=== PATIENT | male | born 1980 | race African-American/Black ===

== ENCOUNTER 2017-02-26 19:50 | Inpatient (IN) ==
[~2017-02-26 19:50] MED LIST: LIDOCAINE 1% 5 ML VIAL ONE; ONDANSETRON 4 MG/2 ML VIAL ONE; PROPOFOL 200 MG/20 ML VIAL IV ONE
[2017-02-26] MEDS ORDERED: SODIUM CHLORIDE 0.9% 500 ML IV STA (20:06)
[2017-02-26] MEDS ORDERED: PIPERACILLIN/TAZOBACTAM 3,375 MG in SODIUM CHLORIDE 0.9% 100 ML IV STA (20:06)
[2017-02-26] MEDS ORDERED: PIPERACILLIN/TAZOBACTAM 3,375 MG VIAL IV ONE (20:11)
[2017-02-26] MEDS ORDERED: SODIUM CHLORIDE 0.9% 100 ML IV ONE (20:11)
--- NOTE | 2017-02-26 20:31 | General Surg History&Physical ---
Assessment and Plan - Time spent with patient Time spent with patient: Greater than 30 minutes (1) Abscess of left thigh Status: Acute Assessment and plan: Impression: Abscess left thigh Plan: Excisional debridement and drainage with IV antibiotics Current Visit: Yes (2) Obesity due to excess calories Status: Acute Assessment and plan: Impression: Obesity moderate Current Visit: Yes History of Present Illness Chief complaint: Painful draining mass left inner thigh History of present illness: Mr. Cristobal is a 36 year old male -[place] who noted Sunday or Sunday the onset of some pain a little not in the inner thigh area on the left. This got progressively worse now is draining at this time when he came into the emergency room tonight. Has a foul odor draining there is a small unusual cystic area in the inner thigh region. There is tenderness difficult to get a good idea exactly how extensive this might be at this time. Dressings will be applied and will put him on some antibiotics and plan to taken surgery tomorrow for debridement. Home Medications Medication Instructions Recorded Confirmed Type No Known Home Medications [No 02/26/17 02/26/17 History Known Home Medications] Allergies Allergy/AdvReac Type Severity Reaction Status Date / Time No Known Allergies Allergy Verified 02/26/17 19:53 Medical,Surgical,& Family Hx - Medical History Medical History: noncontributory - Social History Smoking Status: Current every day smoker Frequency of Alcohol Use: Occasionally Type of Drug Use: None Exam - Constitutional Vitals: Period Temp Pulse Resp BP Sys/Fuller Pulse Ox Last 24 Hr 101.6 F 99 20 158/83 97 General appearance: mild distress - Head Head exam: Present: normal inspection - ENT ENT exam: Present: normal exam - Neck Neck exam: Present: normal inspection - Respiratory Respiratory exam: Present: clear to auscultation bilaterally, rales - Cardiovascular Cardiovascular exam: Present: RRR - GI/Abdominal GI/Abdominal exam: Present: soft. Absent: tenderness - Extremities Exam Extremities exam: Present: other (Left inner thigh on upper medial aspect has a draining area with cystic changes present.) - Back Exam Back exam: Present: normal inspection - Neurological Exam Neurological exam: Present: alert, oriented X3, CN II-XII intact - Skin Skin exam: Present: normal color, warm, dry 12 point system: reviewed and no additional remarkable complaints except as stated
[2017-02-26] MEDS ORDERED: ONDANSETRON 4 MG/2 ML VIAL IV PRN (20:33)
[2017-02-26] MEDS ORDERED: HYDROmorphone 2 MG/1 ML VIAL IV PRN (20:33)
[2017-02-26] MEDS ORDERED: ALUMINUM/MAGNES/SIMETH MAX STR 30 ML UDCUP PO PRN (20:33)
[2017-02-26] MEDS ORDERED: ACETAMINOPHEN 325 MG TABLET PO PRN (20:33)
--- NOTE | 2017-02-26 20:46 | XRay Report ---
XR chest 1V portable Indication: Shortness of breath and fever. Comparison: Chest x-ray 05/08/2016 Technique: Portable AP chest was performed. Findings: Heart size is normal. Pulmonary vasculature appears within normal limits. No significant abnormality of the mediastinal contours demonstrated. Lungs are clear. Bones and soft tissues demonstrate no significant abnormalities. Impression: 1. No evidence of acute pathology. 02/26/2017 8:42 PM PROCEDURE INTERPRETED AT [facility] DEPARTMENT OF RADIOLOGY Final Report Signed by: Dr. Abdulaziz Davalos
[2017-02-26 20:59] LABS: Albumin 3.7 G/DL (3.4-5.0); Basophils % 0.1 % (0.0-0.8); Bilirubin,Total 0.5 MG/DL (0.2-1.0); Calcium 8.8 MG/DL (8.5-10.1); Eosinophils % 0.1 % (0.00-10.9); Hematocrit 37.2 VOL% (42.0-52.0); Hemoglobin 12.3 GM/DL (14.0-18.0); Immature Granulocytes % 0.4 %; Immature Granulocytes Absolute 0.05 #; Lactic Acid 2.1 MMOL/L (0.4-2.0); Lymphocytes # 1.4 10*3/uL (1.4-4.0); Lymphocytes % 10.2 % (21.2-54.2); Mean Corpuscular HGB Conc 33.1 GM/DL (32-36); Mean Corpuscular Hemoglobin 30 PG (27-34); Mean Corpuscular Volume 89.4 FL (87-102); Mean Platelet Volume 12.9 FL (9.6-12.0); Monocytes # 1.1 10*3/uL (0.11-0.8); Monocytes % 7.8 % (1.7-12.7); Neutrophils # 11.3 10*3/uL (1.4-7.4); Neutrophils % 81.4 % (38.7-73.9); Osmolality,Calculated 279.4 MOS/KG (273-304); Platelet Count 157 T/CUMM (130-400); Potassium 3.6 MMOL/L (3.5-5.1); Red Blood Count 4.16 MC/CUMM (3.8-5.5); Red Cell Distribution Width 12.4 % (9.3-17.3); Total Protein 6.7 G/DL (6.4-8.3); White Blood Count 13.9 T/CUMM (4-12)
--- NOTE | 2017-02-26 21:11 | Emergency Department Note ---
Jose Carlos Marvin Gwan, am scribing for, and in the presence of, Jorden Galindo MD 20 :15. Mateo Marvin Charles R, MD, personally performed the services described in this documentation, ascribed by Christopher Branch in my presence, and it is both accurate and complete . Arrival - Arrival Chief Complaint: Abscess Stated Complaint: Fever, Risen inner left thigh ED Nursing Triage Note: C/O Abscess to left inner thigh/fever. Onset Sunday. Pt reports some drainage, but not much. Mode of Arrival: Ambulatory Limitations: No Limitations Source: Patient, Old Records Reviewed, RN Notes Reviewed Time Seen by Provider: 02/26/17 20:01 - History of Present Illness HPI Narrative: Patient is a 36 y/o male who presents to the ED with a c/o abscess to his left inner thigh and fever with an onset 3 days ago. At time of triage, patient's temperature was 101.6. Patient reported that the abscess first appeared as a small bump but as time progressed, his abscess has grown in size and now makes it difficult for him to function normally. Her continued to note that the abscess has began to drain and has a foul smell. This prompted his visit to the ED for further evaluation. Patient confirmed that he has had an abscess before but denies that it has been this big or painful. Patient demonstrated obvious discomfort but did not show any signs of distress. No other problems/complaints reported in ED. Onset (ago): day(s) Consistency: constant Severity: moderate Allergies/Adverse Reactions: Allergies Allergy/AdvReac Type Severity Reaction Status Date / Time No Known Allergies Allergy Verified 02/26/17 19:53 Home Medications: Home Medications Medication Instructions Recorded Confirmed Type No Known Home Medications [No 02/26/17 02/26/17 History Known Home Medications] Review of System - Review of System 12 point system: reviewed and no additional remarkable complaints except as stated - Review of System Constitutional: Present: as per HPI. Absent: chills, diaphoresis Eyes: Absent: discharge, pain Gastrointestinal: Absent: abdominal pain, nausea, vomiting Musculoskeletal: Present: as per HPI, leg pain (lower left thigh pain). Absent : arm pain, back pain Skin: Present: as per HPI, lesions (abscess left groin area). Absent: rash Medical,Surgical,& Family Hx - Social History Smoking Status: Current every day smoker Frequency of Alcohol Use: Occasionally Type of Drug Use: None Exam Vital Signs: Vital Signs Temperature 101.6 F H 02/26/17 19:53 Pulse Rate 96 H 02/26/17 19:58 Respiratory Rate 18 02/26/17 19:58 Blood Pressure 147/91 02/26/17 19:58 O2 Sat by Pulse Oximetry 97 02/26/17 19:53 - General General appearance: alert, in no apparent distress - Head Head exam: Present: atraumatic, normocephalic - Eye Eye exam: Present: normal appearance, PERRL, EOMI - ENT ENT exam: Present: normal oropharynx, mucous membranes moist, TM's normal bilaterally, normal external ear exam - Neck Neck exam: Present: full ROM, trachea midline. Absent: tenderness - Chest Chest inspection: Present: symmetric chest wall rise. Absent: tenderness - Respiratory Respiratory exam: Present: normal lung sounds bilaterally. Absent: respiratory distress - Cardiovascular Cardiovascular exam: Present: regular rate, tachycardia - Abdominal Exam Abdominal exam: Present: soft, normal bowel sounds. Absent: distention - exam: Present: other (10cm x 8cm abscess to left groin inner thigh) - Extremities Exam Extremities exam: Present: full ROM, tenderness (left groin area has a 10cm x 8cm abscess) - Back Exam Back exam: Present: full ROM. Absent: tenderness - Neurological Exam Neurological exam: Present: alert, oriented X3, CN II-XII intact. Absent: motor sensory deficit - Psychiatric Psychiatric exam: Present: normal affect, normal mood - Skin Skin exam: Present: warm, dry, intact, normal color Course - Consultations Consultation #1: Dr. Bustamante will admit patient Time: 21:11 Results - Labs CBC & BMP: 02/26/17 20:19 02/26/17 20:19 Disposition Clinical Impression: Cellulitis, Abscess of skin or subcutaneous tissue, Abscess of left thigh Case discussed with: patient, patient's family Disposition: Still a Patient Condition: Stable Time of Disposition: 21:11
[2017-02-26] MEDS: KETOROLAC 15 MG/1 ML VIAL IV SCH (21:58)
[2017-02-26] MEDS: DOCUSATE SODIUM 100 MG CAPSULE PO SCH (21:58)
[2017-02-26] MEDS: DEXTROSE 5% NACL 0.45% 1,000 ML IV SCH (22:00)
[2017-02-27] MEDS: metroNIDAZOLE INJ 500 MG in PREMIX 1 EACH IV SCH ×2 (01:22→11:38)
[2017-02-27] MEDS: KETOROLAC 15 MG/1 ML VIAL IV SCH ×4 (04:31→21:40)
[2017-02-27] MEDS: DEXTROSE 5% NACL 0.45% 1,000 ML IV SCH ×3 (05:26→21:39)
[2017-02-27] MEDS: PIPERACILLIN/TAZOBACTAM 3,375 MG in SODIUM CHLORIDE 0.9% 100 ML IV SCH ×3 (05:41→21:43)
[2017-02-27 08:20] LABS: Basophils % 0.2 % (0.0-0.8); Eosinophils # 0.1 10*3/uL (0.0-0.87); Eosinophils % 0.6 % (0.00-10.9); Hematocrit 36.5 VOL% (42.0-52.0); Hemoglobin 11.7 GM/DL (14.0-18.0); Immature Granulocytes % 0.4 %; Immature Granulocytes Absolute 0.04 #; Lymphocytes # 1.4 10*3/uL (1.4-4.0); Lymphocytes % 14.1 % (21.2-54.2); Mean Corpuscular HGB Conc 32.1 GM/DL (32-36); Mean Corpuscular Hemoglobin 29 PG (27-34); Mean Corpuscular Volume 89.9 FL (87-102); Mean Platelet Volume 12.9 FL (9.6-12.0); Monocytes # 1.1 10*3/uL (0.11-0.8); Monocytes % 10.6 % (1.7-12.7); Neutrophils # 7.5 10*3/uL (1.4-7.4); Neutrophils % 74.1 % (38.7-73.9); Platelet Count 152 T/CUMM (130-400); Red Blood Count 4.06 MC/CUMM (3.8-5.5); Red Cell Distribution Width 12.3 % (9.3-17.3); White Blood Count 10.2 T/CUMM (4-12)
[2017-02-27] MEDS: PANTOPRAZOLE 40 MG TABLET PO SCH (08:39)
[2017-02-27] MEDS: DOCUSATE SODIUM 100 MG CAPSULE PO SCH ×2 (08:39→21:39)
--- NOTE | 2017-02-27 08:54 | XRay Report ---
XR chest 2V Date: 02/27/2017 4:00 AM History: Respiratory preoperative evaluation Comparison: 02/26/2017 Technique: PA and lateral chest Findings: The heart is normal in size. The lungs are clear with unremarkable mediastinum. No acute osseous findings. Impression: No acute cardiopulmonary pathology identified. PROCEDURE INTERPRETED AT [facility] DEPARTMENT OF RADIOLOGY Final Report Signed by: Dr. Cheryl Tyson
[2017-02-27 08:56] LABS: Calcium 8.6 MG/DL (8.5-10.1); Osmolality,Calculated 279.3 MOS/KG (273-304); Potassium 3.9 MMOL/L (3.5-5.1)
--- NOTE | 2017-02-27 14:28 | Operative Note ---
Date of procedure: 02/27/17 Pre-op diagnosis: Necrotic abscess left upper inner thigh Post-op diagnosis: same Procedure: Operative note: Preoperative diagnosis: Draining abscess with necrotic tissue left upper inner thigh Postoperative diagnosis: Necrotic abscess upper inner thigh. Procedure: Excisional debridement and drainage of abscess of the left upper inner thigh Surgeon Dr. Bustamante Anesthesia was general with local Brief history: 36-year-old obese -[place] male who is not a diabetic but has presented with an abscess in the upper inner thigh area that he does not know how it occurred. She describes it only been present over the last 2436 hrs. before it started to have evidence of drainage. Has a foul odor with a good bit of drainage in the ER we put him in her IV antibiotics like to bring the surgery this time for debridement. This area is difficult to see as is tender to him and he would resistance looking in this area prior to surgery at this time. Procedure: With patient in dorsal lithotomy position prepped and draped in sterile fashion timeout and antibiotics completed approaches area the wound. It is upper inner thigh almost to the crease is a necrotic skin area of fluctuance in this region. This necrotic area measures 4.5 x 6 cm in size. After instilling local anesthetic made incision on the top of this necrotic area which we obtained a large amount of purulent material that we cultured aerobically and anaerobically. At that point I took a knife made elliptical incision around the entire necrotic area to remove this necrotic tissue as well as a deep necrotic subcutaneous tissue. Encountered coupled with the thigh more necrotic skin which we had to debride away also in order to get this process cleared in that direction. It did not seem to extend medially much at this time and superiorly we only had to open it slightly to get beyond the. Infected area. Once we appeared that we were clear everything we went ahead and begin debride the necrotic fatty tissue in the base this wound bed. This allowed us to clean up the entire base here without any evidence of deep infection at this time. Once we had a good and clean we washed with saline solution use light cauterization controlling bleeding. With looking fairly dry we now have a post debridement wound that is 10 x 3 x 2 cm. At that point I then packed it with the Aquacel Ag gauze along with a Dakin's wet fluff and we put a bulky dressing on that on top and took patient to recovery. Estimated blood loss 15 cc Sponge count correct 2 Drains none Complications none Condition stable satisfactory Anesthesia: GETA, local (0.25% Marcaine with epinephrine mixed [id number] 1% Xylocaine plain) Surgeon / Physician: Neal Bustamante Estimated blood loss: other (15 cc) Specimens: other (Tissue for pathology and culture) Condition: stable Disposition: floor Results - Labs CBC & BMP: 02/27/17 07:34 02/27/17 07:34 Discharge Plan - Discharge Medications No Action No Known Home Medications [No Known Home Medications] - Follow Up or Referral - Forms/Instructions
[2017-02-27] MEDS ORDERED: CHLORHEXIDINE 4% SOLN 118 ML BOTTLE TOP ONE (14:37)
[2017-02-27] MEDS ORDERED: MIDAZOLAM 2 MG/2 ML VIAL ONE (14:41)
[2017-02-27] MEDS ORDERED: fentaNYL 100 MCG/2 ML VIAL ONE (14:42)
[2017-02-27] MEDS: metroNIDAZOLE 500 MG TABLET PO SCH ×2 (14:46→21:39)
--- NOTE | 2017-02-27 14:49 | Anesthesia Post-Op ---
Anesthesia Post OP - Post Ansesthetic Evaluation Patient seen in post op: Yes Resp: within normal limits CV: within normal limits Mental: within normal limits Temp: within normal limits [id number]: within normal limits Nausea and Vomiting: within normal limits Pain: within normal limits
[2017-02-28] MEDS: KETOROLAC 15 MG/1 ML VIAL IV SCH ×4 (02:08→21:26)
[2017-02-28] MEDS: PIPERACILLIN/TAZOBACTAM 3,375 MG in SODIUM CHLORIDE 0.9% 100 ML IV SCH ×3 (04:24→21:32)
[2017-02-28 05:21] LABS: Basophils % 0.4 % (0.0-0.8); Eosinophils # 0.1 10*3/uL (0.0-0.87); Eosinophils % 1.5 % (0.00-10.9); Hematocrit 36.7 VOL% (42.0-52.0); Hemoglobin 11.7 GM/DL (14.0-18.0); Immature Granulocytes % 0.6 %; Immature Granulocytes Absolute 0.04 #; Lymphocytes # 1.6 10*3/uL (1.4-4.0); Lymphocytes % 22.6 % (21.2-54.2); Mean Corpuscular HGB Conc 31.9 GM/DL (32-36); Mean Corpuscular Hemoglobin 29 PG (27-34); Mean Corpuscular Volume 91.8 FL (87-102); Monocytes # 0.8 10*3/uL (0.11-0.8); Monocytes % 10.5 % (1.7-12.7); Neutrophils # 4.6 10*3/uL (1.4-7.4); Neutrophils % 64.4 % (38.7-73.9); Platelet Count 148 T/CUMM (130-400); Red Cell Distribution Width 12.1 % (9.3-17.3); White Blood Count 7.2 T/CUMM (4-12)
[2017-02-28] MEDS: DEXTROSE 5% NACL 0.45% 1,000 ML IV SCH ×3 (05:21→21:36)
[2017-02-28 06:01] LABS: Calcium 8.5 MG/DL (8.5-10.1); Potassium 4.1 MMOL/L (3.5-5.1)
[2017-02-28] MEDS: metroNIDAZOLE 500 MG TABLET PO SCH ×3 (08:56→21:26)
[2017-02-28] MEDS: DOCUSATE SODIUM 100 MG CAPSULE PO SCH ×2 (08:56→21:26)
[2017-02-28] MEDS: PANTOPRAZOLE 40 MG TABLET PO SCH (08:56)
[2017-02-28] MEDS: ENOXAPARIN 40 MG/0.4 ML SYRINGE SUBCUT SCH (08:57)
[2017-02-28] MEDS ORDERED: SODIUM HYPOCHLORITE 0.25% IRRIG 473 ML BOTTLE TOP SCH (09:00)
--- NOTE | 2017-02-28 09:52 | General Surgery Progress Note ---
Assessment and Plan - Time spent with patient Time spent with patient: Less than 30 minutes (1) Abscess of skin or subcutaneous tissue Status: Acute Assessment and plan: 02/28/2017. Stable postop I&D of left groin abscess. We will plan to continue IV antibiotics and initiate wound care today. Will await final cultures and tailor these as indicated. We will see how he and his family tolerate and manage his local care; ultimately it would be nice if we could plan for delayed closure once the infection has been addressed Current Visit: Yes Subjective Patient reports: Present: still having pain. Absent: nausea, vomiting, shortness of breath Exam - Constitutional Vitals: Period Temp Pulse Resp BP Sys/Fuller Pulse Ox Last 24 Hr 97.0 F-97.9 F 63-76 12-20 92-155/66-98 93-100 General appearance: no acute distress, over weight - Respiratory Respiratory exam: Present: clear to auscultation bilaterally - Cardiovascular Cardiovascular exam: Present: RRR - GI/Abdominal GI/Abdominal exam: Present: hypoactive bowel sounds, tenderness (Left lower quadrant and groin area. This is adjacent to his operative site.). Absent: distended, guarding - Extremities Exam Extremities exam: Present: other (Tenderness about the left groin surgical site ; this is appropriate considering his recent surgery. There is no strikethrough drainage on the dressing. No unusual swelling or erythema.) - Neurological Exam Neurological exam: Present: alert, oriented X3 Results - Labs CBC & BMP: 02/28/17 03:59 02/28/17 03:59 Lab Results: I have reviewed the past 24 hour labs (Stable postop labs. WBC is now normal. Preliminary culture shows no growth) Quality Measures - VTE Contraindication to Pharmacological VTE Prophylaxis: Clinical assessment deems Pt at low risk, no prophalaxis needed
--- NOTE | 2017-02-28 14:27 | Pathology Report from [facility] ---
[facility] ACCESSION # : [id number] PATIENT NAME : Dalia Tam ORDERING DR : DONNA ABDULLAHI MD CLINICAL HX: Left inner thigh abscess POST-OP DX: Same SPECIMEN INFO: Left inner thigh abscess GROSS DESCRIPTION: The specimen is received in formalin labeled with the patients name and consists of an aggregate of focally necrotic debrided skin and subcutaneous tissue measuring 6.0 x 3.0 x 1.0 cm. A ambulatory services representative section submitted in one cassette. DIAGNOSIS FOR DALIA TAM: LEFT INNER THIGH ABSCESS, I&D: Necrotic and suppurative debris/abscess. COLLECTED DATE: 02/27/2017 [facility] REPORT DATE: 02/28/2017 ELECTRONICALLY SIGNED BY: Maggie Colbert M.D. 02/28/2017 - 9:48:50 [facility]
[2017-02-28] MEDS: SODIUM HYPOCHLORITE 0.25% IRRIG 473 ML BOTTLE TOP SCH ×2 (15:27→21:32)
[2017-03-01] MEDS: DEXTROSE 5% NACL 0.45% 1,000 ML IV SCH ×4 (02:17→22:45)
[2017-03-01] MEDS: KETOROLAC 15 MG/1 ML VIAL IV SCH ×4 (03:04→20:30)
[2017-03-01] MEDS: PIPERACILLIN/TAZOBACTAM 3,375 MG in SODIUM CHLORIDE 0.9% 100 ML IV SCH ×3 (05:53→20:32)
--- NOTE | 2017-03-01 08:38 | General Surgery Progress Note ---
Assessment and Plan (1) Abscess of skin or subcutaneous tissue Status: Acute Assessment and plan: 02/28/2017. Stable postop I&D of left groin abscess. We will plan to continue IV antibiotics and initiate wound care today. Will await final cultures and tailor these as indicated. We will see how he and his family tolerate and manage his local care; ultimately it would be nice if we could plan for delayed closure once the infection has been addressed 03/01/2017. Left groin abscess is healing well. We have no growth on his cultures so far. He is tolerating his wound care fairly well, but certainly this could be simplified if we were able to close the wound. Will discuss with Dr. Bustamante and consider delayed closure in the morning if his cultures remain clear. Current Visit: Yes Subjective Patient reports: Present: still having pain, pain is less, tolerating a regular diet Exam - Constitutional Vitals: Period Temp Pulse Resp BP Sys/Fuller Pulse Ox Last 24 Hr 97.1 F-98.4 F 62-75 18-20 129-158/71-97 96-99 General appearance: no acute distress, over weight - Extremities Exam Extremities exam: Present: other (Left groin wound is clean with a bleeding base. There is no unusual induration, no advancing erythema, and the patient is much less tender today.) Results - Labs CBC & BMP: 02/28/17 03:59 02/28/17 03:59 Lab Results: I have reviewed the past 24 hour labs (WBC is now normal; preliminary micro results still show no growth.) Quality Measures - VTE Contraindication to Pharmacological VTE Prophylaxis: Clinical assessment deems Pt at low risk, no prophalaxis needed
[2017-03-01] MEDS: metroNIDAZOLE 500 MG TABLET PO SCH ×3 (09:07→20:30)
[2017-03-01] MEDS: DOCUSATE SODIUM 100 MG CAPSULE PO SCH ×2 (09:07→20:30)
[2017-03-01] MEDS: PANTOPRAZOLE 40 MG TABLET PO SCH (09:07)
[2017-03-01] MEDS: ENOXAPARIN 40 MG/0.4 ML SYRINGE SUBCUT SCH (09:24)
[2017-03-01] MEDS: SODIUM HYPOCHLORITE 0.25% IRRIG 473 ML BOTTLE TOP SCH ×2 (11:11→20:33)
[2017-03-02] MEDS: DEXTROSE 5% NACL 0.45% 1,000 ML IV SCH ×2 (01:11→05:32)
[2017-03-02] MEDS: KETOROLAC 15 MG/1 ML VIAL IV SCH ×2 (03:17→09:14)
[2017-03-02] MEDS: PIPERACILLIN/TAZOBACTAM 3,375 MG in SODIUM CHLORIDE 0.9% 100 ML IV SCH (05:08)
[2017-03-02 07:42] VITALS: BP 139/77
[2017-03-02] MEDS: ENOXAPARIN 40 MG/0.4 ML SYRINGE SUBCUT SCH ×2 (08:12→09:11)
[2017-03-02] MEDS: metroNIDAZOLE 500 MG TABLET PO SCH ×2 (08:13→09:12)
[2017-03-02] MEDS: DOCUSATE SODIUM 100 MG CAPSULE PO SCH ×2 (08:13→09:13)
[2017-03-02] MEDS: PANTOPRAZOLE 40 MG TABLET PO SCH ×2 (08:13→09:12)
--- NOTE | 2017-03-02 09:00 | Discharge Summary ---
Hospital Course - Hospital Course Hospital Course: Discharge summary: Discharge diagnosis: Abscess of the left inner thigh Secondary diagnosis obesity Procedure: Excisional debridement and drainage abscess left inner thigh. Surgeon Dr. Bustamante Brief summary: A 36-year-old -[place] male who is little bit of weight generally in pretty good health without any unusual problems. He noticed the onset of a painful area in his inner thigh region that occurred and noticed on Sunday. By Sunday when he came into the emergency room this area had progressed to a significantly large area with necrotic tissue and drainage present. He was admitted and put on IV antibiotics and taken to the operating room where we had to do an extensive debridement of this area. It remained fairly localized with a large area of large wound at this time to deal with. Cultures were obtained and initially did not show any growth but at this point is starting to show a staph growing at this time and we are still waiting on sensitivities. We have been doing wound care and he needs to do it twice a day which is important irrigate and using Dakin's wet gauze in this area. We consider the possibility of trying to close it but because of the positive culture we felt it was not good until we knew that we had him clear of any infection. At this point with him probably need to send him home on twice a day dressing changes and getting back in the office on some antibiotics and be sure that we got a good clean clear culture and see if we can maybe make some plans for closure to simplify the care. - Time spent with patient Time with patient DS: Less than 30 minutes Diagnosis - Discharge Diagnosis (1) Abscess of left thigh Status: Chronic (2) Obesity due to excess calories Status: Chronic Specialty Discharge - Follow Up or Referrals Follow up with: Neal Bustamante MD [Physician] - (1 week from sunday) Discharge Plan - Discharge Data Disposition: Disch To Home/Self Care Condition at Discharge: Stable Discharge Diet: advance to your usual diet Activity: increase activity as tolerated, no lifting, no prolonged standing, other (Most keep the wound is clean and dry as possible) Hygiene: may shower Weight Bearing at Discharge: full weight bearing Driving: no restrictions Contact your physician if you experience:: fever over 101, Redness or swelling, Bleeding, pain uncontrolled by pain medications Wound / Dressing Care Instructions: Wound care to the left inner thigh twice a day. 1. Shower and use soap and water of choice but try to use Hibiclens in the area of the wound. 2. If the dressing seems to be a little bit stuck get in the shower and waited well and slowly remove it. 3. While in the shower irrigate the wound with about 20 cc of the half-strength Dakin solution and rinse it with the shower water. 4. Once out of the shower and dry place a Dakin's wet 4 x 4 gauze into the wound cover with additional 4 x 4's and an ABD pad. 5. Brief underwear to help hold the dressing in place. - Discharge Medications New Acetaminophen Tab [Tylenol Tab] 650 mg PO Q6H PRN tablet PRN Reason: Pain Mild (1-3) And/Or Fever Clindamycin Cap [Cleocin Cap] 300 mg PO Q8HR #30 capsule HYDROcodone/ACETAMIN 7.5-325 [[place] 7.5-325] 1 tablet PO Q6H PRN #30 tablet PRN Reason: Pain Moderate (4-7) Sodium Hypochlorite 0.25% Irr [Dakins 1/2 Strength 0.25% Soln] 20 ml TOP BID #1 bottle Ketorolac Tab [Toradol Tab] 10 mg PO TID #14 tablet - Follow Up or Referral Follow Up: Neal Bustamante MD [Physician] - (1 week from sunday) - Forms/Instructions Forms: Acute Care Work/School Release Exam - Constitutional Vitals: Period Temp Pulse Resp BP Sys/Fuller Pulse Ox Last 24 Hr 97.6 F-98.6 F 67-80 18-20 131-157/75-87 97-99 General appearance: mild distress - Head Head exam: Present: normal inspection - ENT ENT exam: Present: normal exam - Respiratory Respiratory exam: Present: clear to auscultation bilaterally - Cardiovascular Cardiovascular exam: Present: regular rate and rhythm - GI/Abdominal GI/Abdominal exam: Present: hypoactive bowel sounds, soft - Extremities Exam Extremities exam: Present: other (Open wound of the left inner thigh that is clean but there is no evidence of any granulating tissue present. There is no sign of any necrotic tissue or drainage this indicate progression of this process.) - Back Exam Back exam: Present: normal inspection - Neurological Exam Neurological exam: Present: alert, oriented X3, CN II-XII intact - Psychiatric Psychiatric exam: Present: normal affect, normal mood, anxious, depressed - Skin Skin exam: Present: normal color, warm, dry Discharge Results Procedures and tests throughout hospitalization: Pending Orders 02/26/17 20:19 Blood Culture Stat 02/27/17 14:00 Abscess Culture Routine Anaerobic Culture Routine Tissue (Biopsy) Culture and GS Routine Labs on day of discharge: Preliminary micro results at discharge 02/26/17 20:19 Blood Culture - Preliminary Blood No growth at 3 days 02/26/17 20:20 Blood Culture - Preliminary Blood No growth at 3 days 02/27/17 14:00 Abscess Culture - Preliminary Thigh - Left Upper Gram Positive Cocci Anaerobic Culture - Preliminary 02/27/17 14:00 Tissue Culture - Preliminary Abscess - Left Upper Gram Positive Cocci DS: Provider Date of admission: 02/26/17 20:33 Primary care physician: . No PCP Attending physician on admission: Neal Bustamante MD Consults: 02/26/17 20:40 Consult to Anesthesiology [CONS] Routine Consulting Provider: Reason for Anesthesiology: Pre-op Clearance 02/27/17 14:29 Consult to Wound Care - [place] [CONS] Routine Reason for Wound Care: Wound Care Management Consult Comment: upper inner left thigh wound Discharging clinician: Neal Bustamante MD Expected date of discharge: 03/02/17
[2017-03-02] MEDS: SODIUM HYPOCHLORITE 0.25% IRRIG 473 ML BOTTLE TOP SCH (10:39)
== END 2017-03-02 12:05 | disposition home or self-care (01) | DRG 572 ==
LOC: N.ED 19:50 → N.EDINP 20:33 → N.3E 20:52
PROVIDERS: ADMIT Specialist; ATTEND Specialist